=== PATIENT | female | born 1955 | race Caucasian/White ===

== ENCOUNTER → 2025-01-04 | Outpatient (CLI) | payer MEDICARE, OTHER ==
[~2025-01-04] MED LIST: PROHANCE 279.3MG/ML 15ML VIAL As Ordered ONE
== END ==
LOC: M RAD 08:46
DX: M43.23 Fusion of spine, cervicothoracic region (principal); M54.16 Radiculopathy, lumbar region
CPT/HCPCS: 72114; 72158; A9576

== ENCOUNTER → 2025-03-13 | Outpatient (CLI) | payer MEDICARE, OTHER | LOC: M PLALAB 16:03 | PROVIDERS: ATTEND Surgery | DX: Z80.3 Family history of malignant neoplasm of breast (principal); R92.8 Other abnormal and inconclusive findings on diagnostic imaging of breast ==

== ENCOUNTER → 2025-03-27 | Outpatient (CLI) | payer MEDICARE, OTHER | LOC: M WHC 11:16 | PROVIDERS: ATTEND Surgery | DX: R92.8 Other abnormal and inconclusive findings on diagnostic imaging of breast (principal); R92.333 Mammographic heterogeneous density, bilateral breasts | CPT/HCPCS: 76642; 77065; G0279 ==